=== PATIENT | female | born 1970 | race Caucasian/White ===

== ENCOUNTER 2019-07-24 15:15 | Emergency (ER) | payer SELFPAY ==
[~2019-07-24] VITALS: Ht 165.1 cm; Wt 59.9 kg
[2019-07-24 15:28] VITALS: BP 108/47; Ht 165.1 cm; Wt 59.9 kg
== END 2019-07-24 16:09 | disposition home or self-care (01) ==
LOC: ED 15:15
DX: K04.7 Periapical abscess without sinus (principal)
CPT/HCPCS: J7030